=== PATIENT | male | born 1965 | race Caucasian/White ===

== ENCOUNTER 2021-09-16 17:41 | Emergency (ER) | payer BC ==
[~2021-09-16] VITALS: Ht 177.8 cm; Wt 88.0 kg
[2021-09-16 17:50] VITALS: BP 170/114
--- NOTE | 2021-09-16 17:56 | PHYS DOC ---
General Adult EDM: Chief Complaint: SORE THROAT HPI: HPI: Patient is a 55-year-old male who presents to the emergency department for anterior neck pain. Patient reports that he was pushing a box that weighed approximately 30 pounds when he fell into it and hit one of his neck on the box. Patient rates his pain 7 out of 10. He denies any shortness of breath, difficulty swallowing or maintaining his secretions. (OLIMPIA GALEAS APRN) Review of Systems: Review of Systems: HENT: See HPI Respiratory: See HPI Musculoskeletal: See HPI Integument: Reports neck swelling (OLIMPIA GALEAS APRN) Physical Exam: PE: Constitutional: Well developed, well nourished, no acute distress, non-toxic appearance. [] HENT: Normocephalic, atraumatic, bilateral external ears normal, oropharynx moist, no oral exudates, nose normal no tonsillar enlargement, no trismus, patient maintaining secretions, uvula midline, no phonation changes. [] Eyes: PERRL, EOMI, conjunctiva normal, no discharge. [] Neck: Normal range of motion, tenderness with palpation to left anterior aspect of patient's neck, trachea midline, swelling noted to left anterior neck, supple, no stridor. [] Cardiovascular:Heart rate regular rhythm, no murmur [] Lungs & Thorax: Bilateral breath sounds clear to auscultation [] Abdomen: Bowel sounds normal, soft, no tenderness, no masses, no pulsatile masses. [] Skin: Warm, dry, no erythema, no rash. [] Back: No tenderness, normal range of motion Extremities: No tenderness, no cyanosis, no clubbing, ROM intact, no edema. [] Neurologic: Alert and oriented X 3, normal motor function, normal sensory function, no focal deficits noted. [] Psychologic: Affect normal, judgement normal, mood normal. [] (OLIMPIA GALEAS APRN) EKG: EKG: [] (OLIMPIA GALEAS APRN) Radiology/Procedures: Radiology/Procedures: []PROCEDURE: CT SOFT TISSUE NECK WO CONTRST EXAM: CT scan of the neck without intravenous contrast. DATE: 09/16/2021 6:01 PM INDICATION: LEFT SIDED NECK INJURY- FELL INTO A SHARP CORNER OF A BOX COMPARISON: None. TECHNIQUE: Axial computed tomography images of the neck without intravenous contrast according to the standard neck protocol. Multiplanar reformats were performed. One or more of the following dose reduction techniques were utilized: Automated exposure control (AEC), Adjustment of mA and/or kV according to patient size, Use of iterative reconstruction technique such as ASiR, CT scan done according to ALARA and image gently/image wisely FINDINGS: No cervical mass or lymphadenopathy. The parotid, submandibular, and thyroid glands are normal. The unenhanced vessels of the neck are normal. The visualized aerodigestive tract is normal. The visualized posterior fossa and brain is normal. The visualized orbits and paranasal sinuses are normal. Moderate to severe multilevel degenerative disc desiccation. Multilevel spinal canal stenosis secondary to disc protrusions and marginal osteophytes, worst and moderate to severe at C6-7. Multilevel neural foraminal narrowing secondary to uncovertebral and facet arthrosis, moderate to severe at C5-6 on the right and C6-7 bilaterally. The visualized lung apices are clear. IMPRESSION: 1. No acute fracture. No large soft tissue hematoma to suggest major vascular injury. 2. Advanced cervical spondylosis with moderate to severe spinal canal stenosis at C6-7. This could be characterized with MRI, as clinically warranted. Electronically signed by: Jj Perez MD (09/16/2021 6:20 PM) [facility] DICTATED AND SIGNED BY: JJ PEREZ MD DATE: 09/16/211808 CC: FREDA SHIELDS MD; OLIMPIA GALEAS APRN ~MTH0 0 (OLIMPIA GALEAS APRN) Heart Score: C/O Chest Pain: N/A Risk Factors: Risk Factors: DM, Current or recent (<one month) smoker, HTN, HLP, family history of CAD, obesity. Risk Scores: Score 0 - 3: 2.5% MACE over next 6 weeks - Discharge Home Score 4 - 6: 20.3% MACE over next 6 weeks - Admit for Clinical Observation Score 7 - 10: 72.7% MACE over next 6 weeks - Early Invasive Strategies (OLIMPIA GALEAS APRN) Course & Med Decision Making: Course & Med Decision Making Pertinent Labs and Imaging studies reviewed. (See chart for details) [] Patient presents to the emergency department for anterior neck pain after falling onto a box. CT scanning of patient's neck and soft tissues was performed in the ER. Patient is nonlabored and in no acute distress, maintaining secretions. CT scan negative for any acute findings. Patient advised to take anti-inflammatory medications and apply ice. Patient vies follow-up with primary care provider. I discussed with patient all findings and diagnostic testing as well as the need to follow-up with PCP for further evaluation and treatment or return to the ER if any new or worsening symptoms. Strict return precautions were also discussed at length. Patient voiced understanding and agreement with the plan. Patient is hemodynamically stable at the time of disposition. (OLIMPIA GALEAS ADVERTISING REP) Course & Med Decision Making Did not see or evaluate patient. Did not discuss patient with [employer]. Agree with [employer]'s work-up and disposition per note. (SHAUN ARELLANO MD) Dragon Disclaimer: Dragon Disclaimer: This electronic medical record was generated, in whole or in part, using a voice recognition dictation system. (OLIMPIA GALEAS APRN) Departure Departure: Impression: Primary Impression: Neck contusion Qualified Codes: S10.93XA - Contusion of unspecified part of neck, initial encounter Disposition: HOME / SELF CARE / HOMELESS Condition: GOOD Referrals: FREDA SHIELDS MD (PCP) Patient Instructions: Soft Tissue Injury of the Neck Additional Instructions: You were seen in the emergency department today for neck pain following an injury. The CT scan was performed of your neck that was negative for any acute findings although you were noted to have some degenerative changes. You can take anti-inflammatory medications at home for your pain such as ibuprofen or na proxen. Application of ice may help with your swelling. Please follow-up with your primary care provider tomorrow regarding your ER visit. Return to the emergency department if you develop worsening of your pain, shortness of breath, inability to swallow, difficulty breathing, drooling or any new or worsening concerns. EMERGENCY DEPARTMENT GENERAL DISCHARGE INSTRUCTIONS Thank you for coming to [facility] ([facility]) today and trusting us with you care. We trust that you had a positivie experience in our Emergency Department. If you wish to speak to the department management, you may call the director at [phone]. YOUR FOLLOW UP INSTRUCTIONS ARE FOLLOWS: 1. Do you have a private Doctor? If you do not have a private doctor, please ask for a resource list of physicians or clinics that may be able to assist you with follow up care. 2. The Emergency Physician has interpreted your x-rays. The X-Ray specialist will also review them. If there is a change in the findings, you will be notified in 48 hours when at all possible. 3. A lab test or culture has been done, your results will be reviewed and you will be notified if you need a change in treatment. ADDITIONAL INSTRUCTIONS AND INFORMATION: 1. Your care today has been supervised by a physician who is specially trained in emergency care. Many problems require more than one evaluation for a complete diagnosis and treatment. We recommend that you schedule your follow up appointment as recommended to ensure complete treatment of you illness or injury. If you are unable to obtain follow up care and continue to have a problem, or if your condition worsens, we recommend that you return to the ED. 2. We are not able to safely determine your condition over the phone nor are we able to give sound medical advice over the phone. For these safety reasons, if you call for medical advice we will ask you to come to the ED for further evaluation. 3. If you have any questions regarding these discharge instructions please call the ED at [phone]. SAFETY INFORMATION: In the interest of safety, wellness, and injury prevention; we encourage you to wear your sealbelt, if you smoke; quite smoking, and we encourage family to use a protective helmet for bicycling and other sporting events that present an increased risk for head injury. IF YOUR SYMPTOMS WORSEN OR NEW SYMPTOMS DEVELOP, OR YOU HAVE CONCERNS ABOUT YOUR CONDITION; OR IF YOUR CONDITION WORSENS WHILE YOU ARE WAITING FOR YOUR FOLLOW UP APPOINTMENT; EITHER CONTACT YOUR PRIMARY CARE DOCTOR, THE PHYSICIAN WHOSE NAME AND NUMBER YOU WERE GIVEN, OR RETURN TO THE ED IMMEDIATELY. OLIMPIA GALEAS APRN Sep 16, 2021 17:56 SHAUN ARELLANO MD Sep 16, 2021 20:07
--- NOTE | 2021-09-16 18:22 | RAD ---
EXAM: CT scan of the neck without intravenous contrast. DATE: 09/16/2021 6:01 PM INDICATION: LEFT SIDED NECK INJURY- FELL INTO A SHARP CORNER OF A BOX COMPARISON: None. TECHNIQUE: Axial computed tomography images of the neck without intravenous contrast according to t standard neck protocol. Multiplanar reformats were performed. One or more of the following dose re duction techniques were utilized: Automated exposure control (AEC), Adjustment of mA and/or kV accord ing to patient size, Use of iterative reconstruction technique such as ASiR, CT scan done according t o ALARA and image gently/image wisely FINDINGS: No cervical mass or lymphadenopathy. The parotid, submandibular, and thyroid glands are normal. The u nenhanced vessels of the neck are normal. The visualized aerodigestive tract is normal. The visualized posterior fossa and brain is normal. The visualized orbits and paranasal sinuses are n ormal. Moderate to severe multilevel degenerative disc desiccation. Multilevel spinal canal stenosis seconda ry to disc protrusions and marginal osteophytes, worst and moderate to severe at C6-7. Multilevel rosaura ral foraminal narrowing secondary to uncovertebral and facet arthrosis, moderate to severe at C5-6 on the right and C6-7 bilaterally. The visualized lung apices are clear. IMPRESSION: 1. No acute fracture. No large soft tissue hematoma to suggest major vascular injury. 2. Advanced cervical spondylosis with moderate to severe spinal canal stenosis at C6-7. This could be characterized with MRI, as clinically warranted. Electronically signed by: Isidro Perez MD (09/16/2021 6:20 PM) [facility]
== END 2021-09-16 18:41 | disposition home or self-care (01) ==
LOC: ER 17:41
DX: S10.93XA Contusion of unspecified part of neck, initial encounter (principal); W20.8XXA Other cause of strike by thrown, projected or falling object, initial encounter; Y93.89 Activity, other specified; Y92.89 Other specified places as the place of occurrence of the external cause; Y99.8 Other external cause status
CPT/HCPCS: 70490; 99284-25